=== PATIENT | male | born 1945 | race Two or more races ===

== ENCOUNTER → 2025-01-07 | Outpatient (CLI) | payer OTHER, SELFPAY ==
[2025-01-07 10:16] LABS: Basophils % (Auto) 1 % (0-2.5); Eosinophils # (Auto) 0.4 Thou/mm3 (0.0-0.5); Eosinophils % (Auto) 8 % (0-10); Hematocrit 32.4 % (41.0-53.0); Immature Granulocytes % (Auto) 0 % (0-0); Immature Granulocytes Auto 0.01 Thou/mm3 (0.00-0.00); Lymphocytes # (Auto) 1.4 Thou/mm3 (1.0-4.8); Lymphocytes % (Auto) 28 % (10-50); Mean Corpuscular Hemoglobin 27.5 pg (25.0-35.0); Mean Corpuscular Volume 81 fL (80-100); Monocytes # (Auto) 0.4 Thou/mm3 (0.0-0.8); Monocytes % (Auto) 8 % (0-12); Neutrophils # (Auto) 2.7 Thou/mm3 (1.8-7.7); Neutrophils % (Auto) 55 % (37-80); Nucleated Red Blood Cell % 0 /100 WBC (0); Platelet Count 221 Thou/mm3 (140-440); White Blood Count 4.9 Thou/mm3 (3.8-10.6)
[2025-01-07 10:41] LABS: Alanine Aminotransferase 16 U/L (10-49); Albumin, Serum 4.3 gm/dL (3.4-4.8); Albumin/Globulin Ratio 1.7 (1.2-2.2); Alkaline Phosphatase 92 U/L (46-116); Anion Gap 13 (7-16); BUN/Creatinine Ratio 15 Ratio (12-20); Bilirubin,Total 0.5 mg/dL (0.3-1.2); Blood Urea Nitrogen 28 mg/dL (9-23); Calcium 9.4 mg/dL (8.3-10.6); Calcium (Corrected) 9.4 mg/dL (8.5-10.1); Carbon Dioxide 26.3 mMol/L (20.0-31.0); Cardiac Risk Estimate 3.3 RATIO (4.0-6.7); Chloride 107 mMol/L (98-107); Cholesterol 117 mg/dL (132-200); Creatinine (Component) 1.9 mg/dL (0.6-1.3); Globulin 2.6 gm/dL (2.3-3.5); Glucose 151 mg/dL (74-106); HDL Cholesterol 35 mg/dL (40-60); LDL Cholesterol,Calculated 66 mg/dL (0-130); Osmolality,Calculated 299 (275-295); Potassium 4.7 mMol/L (3.4-5.1); Sodium 146 mMol/L (136-145); Total Protein 6.9 gm/dL (5.7-8.2); Triglycerides 79 mg/dL (30-150); eGFR 36 See Note
[2025-01-07 10:52] LABS: Glucose Estimated Average 151 mg/dL (80-131); Hemoglobin A1C 6.9 % Hgb (4.8-6.0)
== END | disposition home or self-care (01) ==
PROVIDERS: PCP Family Medicine; Referring Provider Family Medicine; Visit Provider Family Medicine
DX: E11.65 Type 2 diabetes mellitus with hyperglycemia (principal)
CPT/HCPCS: 36415; 80053; 80061; 83036; 85025

== ENCOUNTER → 2025-01-22 | Outpatient (CLI) | payer OTHER, SELFPAY ==
[2025-01-22 12:00] LABS: Basophils % (Auto) 1 % (0-2.5); Eosinophils # (Auto) 0.4 Thou/mm3 (0.0-0.5); Eosinophils % (Auto) 9 % (0-10); Hemoglobin 10.6 g/dL (13.5-16.0); Immature Granulocytes % (Auto) 1 % (0-0); Immature Granulocytes Auto 0.03 Thou/mm3 (0.00-0.00); Lymphocytes # (Auto) 1.3 Thou/mm3 (1.0-4.8); Lymphocytes % (Auto) 27 % (10-50); Mean Corpuscular HGB Conc 34.2 g/dl (31.0-37.0); Mean Corpuscular Hemoglobin 27.7 pg (25.0-35.0); Mean Corpuscular Volume 81 fL (80-100); Monocytes # (Auto) 0.5 Thou/mm3 (0.0-0.8); Monocytes % (Auto) 9 % (0-12); Neutrophils # (Auto) 2.7 Thou/mm3 (1.8-7.7); Neutrophils % (Auto) 54 % (37-80); Nucleated Red Blood Cell % 0 /100 WBC (0); Platelet Count 202 Thou/mm3 (140-440); RDW Standard Deviation 46.6 fL (35.1-43.9); Red Blood Count 3.83 Miln/mm3 (4.50-5.90); White Blood Count 4.9 Thou/mm3 (3.8-10.6)
[2025-01-22 12:19] LABS: Prostate Specific Antigen 2.24 ng/mL (0-4.00)
[2025-01-22 12:24] LABS: Collection Type, Urine Clean Catch
[2025-01-22 13:39] LABS: Bilirubin,Urine Negative (Negative); Blood,Urine Negative (Negative); Clarity,Urine Clear (Clear/Hazy); Color,Urine Yellow (Lt Yel-Yel); Glucose, Urine Negative (Negative); Hyaline Casts,Urine < 1 /hpf (0-1); Ketones,Urine Negative (Negative); Leukocyte Esterase,Urine Negative (Negative); Nitrite,Urine Negative (Negative); PH,Urine 6.5 (5.0-7.0); Protein,Urine 1+ (Neg - Trace); RBC,Urine 2 /hpf (0-3); Specific Gravity,Urine 1.015 (1.001-1.035); Squamous Epithelial Cell,Urine < 1 /hpf (0-5); Urobilinogen,Urine Negative mg/dL (0.0-1.0); WBC,Urine 1 /hpf (0-5)
== END | disposition home or self-care (01) ==
LOC: COPL 11:22
PROVIDERS: PCP Family Medicine; Referring Provider Family Medicine; Visit Provider Family Medicine
DX: R32 Unspecified urinary incontinence (principal)
CPT/HCPCS: 36415; 81001; 84153; 85025; 87086